=== PATIENT | female | born 1990 | race African-American/Black ===

== ENCOUNTER 2017-05-07 09:39 | Emergency (ER) | payer SELFPAY ==
[2017-05-07] MEDS ORDERED: Dexamethasone 4 MG TAB ONE (10:47)
[2017-05-07] MEDS ORDERED: Albuterol Sulfate 2.5 mg/0.5 ml Neb ONE (10:53)
[2017-05-07] MEDS ORDERED: Albuterol Sulfate 2.5 mg/3 ml Neb ONE (10:53)
== END 2017-05-07 11:22 | disposition home or self-care (01) ==
LOC: ERS 09:39
DX: J45.901 Unspecified asthma with (acute) exacerbation (principal)
CPT/HCPCS: 99283; J7611; J8540

== ENCOUNTER 2017-05-15 05:19 | Emergency (ER) | payer SELFPAY ==
[2017-05-15] MEDS ORDERED: Acetaminophen/Codeine 30-300mg Tablet ONE (06:35)
[2017-05-15] MEDS ORDERED: Ibuprofen 800 MG TAB ONE (06:35)
[2017-05-15 06:45] LABS: Pregnancy Test - Urine (BHCG) Negative (Negative); Specific Gravity 1.007 (1.002-1.036)
[2017-05-15 06:46] LABS: Pregu Control Background? CLEAR/WHITE (CLR/WHITE); Pregu Control Bar Appear? YES (CONTROL BAR)
--- NOTE | 2017-05-15 07:37 | RAD ---
CHEST PA AND LATERAL: HISTORY: A 26-year-old female with lower left chest wall pain, bad cough. Heart size is normal. The lungs are clear. IMPRESSION: No acute intrathoracic disease. No evidence for pneumonia. POS: [facility]
== END 2017-05-15 07:16 | disposition home or self-care (01) ==
LOC: ERS 05:19
DX: R07.89 Other chest pain (principal); J45.909 Unspecified asthma, uncomplicated; F17.210 Nicotine dependence, cigarettes, uncomplicated
CPT/HCPCS: 71046; 81025; 93005

== ENCOUNTER 2017-07-09 21:21 | Emergency (ER) | payer SELFPAY | END 2017-07-09 22:56 | LOC: ERS 21:21 | DX: Z02.89 Encounter for other administrative examinations (principal); J45.909 Unspecified asthma, uncomplicated | CPT/HCPCS: 99282 ==

== ENCOUNTER 2018-02-10 15:31 | Emergency (ER) | payer SELFPAY ==
[2018-02-10 16:48] LABS: #Lymphocytes 1.7 thou/uL (1.20-3.40); #Monocytes 0.3 thou/uL (0.11-0.59); #Neutrophils 2.2 thou/uL (1.40-6.50); %Basophils 0.7 % (0.0-1.0); %Eosinophils 0.6 % (0.0-10.0); %Lymphocytes 39.9 % (21.0-51.0); %Monocytes 7.1 % (0.0-10.0); %Neutrophils 51.7 % (42.0-75.0); Hemoglobin 12.9 g/dL (12.0-16.0); Mean Corpuscular HGB CONC 31.7 g/dL (32.0-36.0); Mean Corpuscular Hemoglobin 28.9 pg (27.0-31.0); Mean Corpuscular Volume 91.3 fL (78.0-98.0); Mean Platelet Volume 7.3 fL (7.4-10.4); Platelet Count 291 thou/uL (130-400); RBC Distribution Width 12.3 % (11.5-14.5); Red Blood Cell (RBC) Count 4.46 mill/uL (4.20-5.40); White Blood Cell (WBC) Count 4.3 thou/uL (4.8-10.8)
[2018-02-10 17:16] LABS: ALT (SGPT) 17 U/L (8-55); AST (SGOT) 24 U/L (5-34); Albumin 4.5 g/dL (3.5-5.0); Alkaline Phosphatase 48 U/L (40-150); Anion Gap 10 mmol/L (10-20); BUN (Urea Nitrogen) 11 mg/dL (7.0-18.7); Bilirubin, Total 0.3 mg/dL (0.2-1.2); Calc. Creatinine Clearance 0 mL/min (70-130); Carbon Dioxide 27 mmol/L (22-29); Chloride 105 mmol/L (98-107); Estimated GFR-MDRD Greater than 90; Glucose 89 mg/dL (70-105); Lipase 21 U/L (8-78); Potassium 4.3 mmol/L (3.5-5.1); Protein, Total 7.5 g/dL (6.0-8.3); Sodium 138 mmol/L (136-145)
[2018-02-10 19:31] LABS: Bilirubin Negative (Negative); Blood, Urine Negative (Negative); Clarity CLOUDY (Clear); Glucose, Urine (Dipstick) Negative (Negative); Leukocyte Negative (Negative); Nitrite Negative (Negative); Protein, Urine (Dipstick) Negative (Neg-Trace); Specific Gravity, Urine 1.021 (1.002-1.036)
[2018-02-10 19:34] LABS: Pregnancy Test - Urine (BHCG) Negative (Negative); Pregu Control Background? CLEAR/WHITE (CLR/WHITE); Pregu Control Bar Appear? YES (CONTROL BAR); Specific Gravity 1.021 (1.002-1.036)
== END 2018-02-10 19:59 | disposition home or self-care (01) ==
LOC: ERS 15:31
DX: A08.4 Viral intestinal infection, unspecified (principal); J45.909 Unspecified asthma, uncomplicated; Z71.6 Tobacco abuse counseling
CPT/HCPCS: 36415; 80053; 81003; 81025; 83690; 84702; 85025; 99406

== ENCOUNTER 2018-04-29 14:18 | Emergency (ER) | payer SELFPAY | END 2018-04-29 15:17 | disposition home or self-care (01) | LOC: ERS 14:18 | DX: R19.7 Diarrhea, unspecified (principal); F17.210 Nicotine dependence, cigarettes, uncomplicated; J45.909 Unspecified asthma, uncomplicated | CPT/HCPCS: 99283 ==

== ENCOUNTER 2018-09-11 19:08 | Emergency (ER) | payer SELFPAY | END 2018-09-11 19:35 | disposition home or self-care (01) | LOC: ERS 19:08 | DX: J06.9 Acute upper respiratory infection, unspecified (principal) | CPT/HCPCS: 99283 ==

== ENCOUNTER 2020-02-01 01:34 | Emergency (ER) | payer SELFPAY ==
--- NOTE | 2020-02-01 07:52 | RAD ---
EXAM: 3 views of the left wrist HISTORY: Wrist pain COMPARISON: None FINDINGS: 3 views of the left wrist shows no evidence of acute fracture or dislocation. No soft tissu e swelling is seen. No degenerative changes are present. IMPRESSION: No evidence of acute osseous abnormality.
== END 2020-02-01 02:10 | disposition home or self-care (01) ==
LOC: ERS 01:34
DX: M25.532 Pain in left wrist (principal); W17.89XA Other fall from one level to another, initial encounter

== ENCOUNTER 2021-07-27 21:40 | Emergency (ER) | payer SELFPAY ==
[2021-07-28] MEDS ORDERED: HYDROcodone/Acetaminophen 5/325 mg Tablet ONE
== END 2021-07-28 00:18 | disposition home or self-care (01) ==
LOC: ERS 21:40
DX: S90.122A Contusion of left lesser toe(s) without damage to nail, initial encounter (principal); W22.8XXA Striking against or struck by other objects, initial encounter

== ENCOUNTER 2021-11-14 16:05 | Emergency (ER) | payer SELFPAY | END 2021-11-14 16:35 | LOC: ERS 16:05 | DX: R00.0 Tachycardia, unspecified (principal) | CPT/HCPCS: 36416; 93005 ==